=== PATIENT | male | born 2000 | race Caucasian/White ===

== ENCOUNTER 2024-10-23 22:46 | Emergency (ER) | payer OTHER, SELFPAY ==
[2024-10-23 22:47] VITALS: BP 122/67
[2024-10-23 23:56] VITALS: BP 114/69
[2024-10-24] VITALS: BP 111/71
[2024-10-24 00:18] VITALS: BMI 23.1
[2024-10-24] MEDS: ADACEL 0.5 ML IM (00:34)
--- NOTE | 2024-10-24 00:54 | ED.GENMED ---
History of Present Illness
General
Chief Complaint: Skin Surface Trauma
Source: patient and family
Exam Limitations: none
Time Seen by Provider: 10/23/24 23:58
Nursing documentation reviewed up to this point in time: agreed with
History of Present Illness
History of Present Illness:
24-year-old male presenting to the emergency department today for concerns of an episode where he felt lightheaded after having a bowel movement prior to arrival fell hit the back of his head and that he did lose consciousness his mom was in the
other room and was able to come to the side within a few seconds appearing a thud. He was able to wake up without significant confusion. No jerking movements. Otherwise feels well at this point. Did have some bleeding to the back of his head.
Unsure when his last tetanus shot was. Denies any numbness weakness neck pain nausea vomiting.
Review of Systems
Review of Systems
Allergies reviewed?: Yes
All Other Systems: ROS reviewed and negative except as documented in HPI and ROS
Phy Exam
Physical Exam
Physical Exam:
GENERAL: Alert , in no apparent distress
EYE: pupils equal and reactive
NECK: Supple, no significant adenopathy.
ENT: Laceration to the posterior scalp in vertical orientation 4 cm in total o/p clr, mmm.
CARDIAC: Regular rate and rhythm .
LUNGS: Clear breath sounds bilaterally, no acute respiratory distress, no wheezes/rales/rhonchi
ABDOMEN: Soft, without focal tenderness, no r/g, no cvat
NEUROLOGICAL: Alert and oriented, no focal neuro deficits
SKIN: Warm and dry, skin intact.
MUSCULOSKELETAL: No edema, well perfused.
PSYCH: Normal and appropriate interaction.
Course
Orders/Labs/Results
Orders:
Orders
10/24/24 00:22
CT Head W/o Iv Contrast Urgent
Comment:
Reason For Exam: fall hit back of head LOC,
Tetanus/Diphth/Acelpertussis [Adacel] 0.5 ml IM .ONCE ONE
10/24/24 00:55
EKG [Electrocardiogram (*1)] Urgent
Reason for Study: Syncope
EKG- Treatment ONCE
Vital Signs
Initial and Last Documented VS:
Initial Vital Signs
Temp Pulse Resp BP Pulse Ox
97.8 F 55 18 122/67 100
10/23/24 22:47 10/23/24 22:47 10/23/24 22:47 10/23/24 22:47 10/23/24 22:47
Last Documented Vital Signs
Temp Pulse Resp BP Pulse Ox
97.8 F 58 13 112/66 94
10/23/24 22:47 10/24/24 01:00 10/24/24 01:00 10/24/24 01:00 10/24/24 01:00
Procedures
Laceration Closure
Occipital:
Status of Wound: clean
Size of Wound in cm: 4
Description of Wound Edges: sharp
Preparation: cleaned with saline
Anesthesia: 1% Lidocaine with epi
Revision/Debridement: routine- no revision
Skin Closure Material: skin bowen
Number of sutures: 4
MDM/Problems Addressed
MDM/Problems Addressed:
24-year-old male presenting to the emergency department today with concerns of a syncopal episode prior to arrival. This had occurred after a bowel movement. [place] lightheaded prior. No chest pain palpitations. Story sounds most consistent with
vasovagal event. Does have a laceration to the back of his head. CT scan without emergent findings. Laceration was cleaned and closed with 4 bowen otherwise table for discharge at this time return precautions given. Advised for removal in 7 to
10 days.
*Pulse Oximetry
SaO2: 100
Oxygen Mode of Delivery: Room air
Patient hypoxic: no (94)
*Critical Care Note
Total Time (30-74mins, 75-104mins- exclusive of procedures): Not Applicable
ED Attending Note
-
Portions of this chart may have been created with voice recognition software.� Occasional wrong word or��sound alike� substitutions may have occurred due to the inherent limitations of voice recognition software.
Discharge Plan
Departure
Patient Disposition: Home (Routine Discharge)
Date of Disposition: 10/24/24
Time of Disposition: 01:39
Patient with high blood pressure during this ER visit?: No
Condition: Good
Covid-19: Not Applicable
Discharge Problem:
Syncope, Laceration of scalp
Instructions: Syncope (fainting), Laceration Repair With [place] ([place])
Referrals:
Harmeet Benz, [Family Provider, Family Practice]
Activity Restrictions/Additional Instructions:
You came to the emergency department today after a syncopal event and a laceration to your scalp. Your head CT was normal and EKG was normal. Your scalp laceration was cleaned thoroughly and closed with 4 bowen. Please follow-up in the next 7
to 10 days for staple removal. Return for any worsening, new or concerning symptoms.
Interventions
Interventions:
*Risk Screen - Suicide Last Done: 10/23/24 22:47
*General Assessment Last Done: 10/23/24 22:47
*Neglect/Abuse Screening Last Done: 10/23/24 22:47
*ED COVID-19 Vaccine History Last Done: 10/23/24 22:47
ED-Skin Assessment Last Done: 10/24/24 00:21
Discharge Date and Time
Print Language: BANGLADESHI
[2024-10-24 01:00] VITALS: BP 112/66
== END 2024-10-24 01:55 | disposition home or self-care (01) ==
LOC: EMR 22:46
PROVIDERS: EMERGENCY PHYSICIAN Student in an Organized Health Care Education/Training Program; FAMILY PHYSICIAN Family Medicine
DX: R55 Syncope and collapse (principal); S01.01XA Laceration without foreign body of scalp, initial encounter; Z23 Encounter for immunization; W01.10XA Fall on same level from slipping, tripping and stumbling with subsequent striking against unspecified object, initial encounter
CPT/HCPCS: 99284; 12002; 90471; 70450; 90715; 93005